=== PATIENT | female | born 1965 ===

== ENCOUNTER 2018-02-19 06:56 | Inpatient (IN) | payer OTHER ==
[~2018-02-19 06:56] MED LIST: IRON236 MG PO; VIT C-ROSE HIP500 MG PO
[2018-02-22] MEDS ORDERED: CODE1TAB37 PO (10:50)
[2018-02-22] MEDS ORDERED: DOCUSATE SODIU100 MG PO (10:50)
== END 2018-02-22 13:46 | DRG 355 ==
LOC: CIR.AMB 06:56 → SURG 19:02
PROVIDERS: Obstetrics & Gynecology; Surgery
PROC: 0UT70ZZ Resection of Bilateral Fallopian Tubes, Open Approach (ICD-10-PCS; 2018-02-19)
PROC: 0UB90ZZ Excision of Uterus, Open Approach (ICD-10-PCS; 2018-02-19)
PROC: 0WQF0ZZ Repair Abdominal Wall, Open Approach (ICD-10-PCS; principal; 2018-02-19 05:15)
PROC: 0UT90ZZ Resection of Uterus, Open Approach (ICD-10-PCS; 2018-02-19 05:15)
DX: K43.6 Other and unspecified ventral hernia with obstruction, without gangrene (principal); K42.0 Umbilical hernia with obstruction, without gangrene; D25.1 Intramural leiomyoma of uterus; N72 Inflammatory disease of cervix uteri; N80.0 Endometriosis of uterus